=== PATIENT | male | born 1965 | race Caucasian/White ===

== ENCOUNTER 2019-01-19 00:15 | Emergency (ER) | payer BC, SELFPAY ==
[2019-01-19 00:16] VITALS: BP 180/117; PULSE 105; RESP 16; TEMP 36.8; O2SAT 98; BMI 29.4
--- NOTE | 2019-01-19 00:35 | HMH.EDGENADL ---
ED Disposition Clinical Impression: Otitis media Qualifiers: Otitis media type: serous Chronicity: acute Laterality: left Recurrence: non-recurrent Qualified Code(s): H65.02 - Acute serous otitis media, left ear Disposition: Home, Self-Care Condition on Discharge: Good Instructions: DI for Ear Pain-Adult Additional Instructions: use meds and call pcp in am Prescriptions: predniSONE [Prednisone 20mg Tab] 20 mg PO BID #10 tab Referrals: James Gaytan [Primary Care Provider] - - Critical Care Critical Care Time: No Attestation: On 01/19/19, the high probability of a clinically significant, sudden or life threatening deterioration of the following system(s) required my full and direct attention, intervention and personal management. The time I documented below is in addition to time spent performing reported procedures but includes the following listed in this critical care notation. Medical Decision Making - Medical Records Medical records reviewed: Yes: I reviewed the patient's medical records. - Sea Inquiry Pt receiving controlled substance: No Vital Signs: 01/19/19 00:16 Temperature 98.3 F Temperature Source Oral Pulse Rate [Right Brachial] 105 H Respiratory Rate 16 Blood Pressure [Right Arm] 180/117 H Blood Pressure Mean [Right Arm] 138 Blood Pressure Position [Right Arm] Sitting 02 Sat by Pulse Oximetry 98 Oxygen Delivery Method Room Air - Lab Data Lab results reviewed: Yes: I reviewed the patient's lab results. General Adult HPI - General Chief complaint: PAIN Stated complaint: Right earache Time Seen by Provider: 01/19/19 00:35 Mode of Arrival: Ambulatory Source of Information: Patient, Spouse, Medical Record Limitations: No Limitations Description of Symptoms (Recalled from ER Triage Doc. by RN): Pt c/o right ear pain. Advises he was seen on at [facility] and treated for sinus infection. - History of Present Illness HPI narrative: pt with rt ear pain which started today with no rash or trauma and no drainage - he was seen at [facility] and placed on abx - amox for sinus- Onset (ago): day(s) Severity: moderate Associated symptoms: denies other symptoms Treatments prior to arrival: none - Related Data Home Medications Medication Instructions Recorded Confirmed apixaban 2.5 mg tablet PO #180 tab 01/17/19 01/17/19 fenofibrate 160 mg tablet PO #90 tab 01/17/19 01/17/19 lisinopril 20 PO #90 tab 01/17/19 01/17/19 mg-hydrochlorothiazide 12.5 mg tablet omeprazole 40 mg capsule,delayed 40 mg PO DAILY 01/17/19 01/17/19 release Previous Rx's Medication Instructions Recorded amoxicillin 500 mg capsule 500 mg PO Q12H 10 Days #20 cap 01/17/19 predniSONE [Prednisone 20mg 20 mg PO BID #10 tab 01/19/19 Tab] Allergies Allergy/AdvReac Type Severity Reaction Status Date / Time amoxicillin [From Augmentin] Allergy Mild Verified 01/19/19 00:25 clavulanic acid Allergy Mild Verified 01/19/19 00:25 [From Augmentin] [facility] History - Hepatitis A Screen Drug use history?: No High risk sexual behaviors?: No History of sexually transmitted infection?: No Currently employed?: No Childcare worker?: No Do you have indoor plumbing?: Yes Do you have electricity?: Yes Attestation statement:: This patient has been screened for Hepatitis A risk factors. I have reviewed the patient's past medical history: Yes Medical History: Reports:: Deep Vein Thrombosis, Gastroesophageal Reflux Disease(GERD), Hyperlipidemia, Hypertension, Lung Disease Denies:: Diabetes Mellitus Type 1, Diabetes Mellitus Type 2, Internal Pacemaker, Seizures Other Medical History: Reports: Other Comment: 2 DVTS Laterality Cases: Other Surgeries: No: Pacemaker Comment: SURGERY ON LEG TO REMOVER CYST - Social History Smoking Status: Never smoker Alcohol Intake: never Substance Use Type: denies use Occupational Status: employed Housing: house Household Members: [facility]
--- NOTE | 2019-01-19 00:38 | ED_ITS ---
ED Disposition Clinical Impression: Otitis media Qualifiers: Otitis media type: serous Chronicity: acute Laterality: left Recurrence: non- recurrent Qualified Code(s): H65.02 - Acute serous otitis media, left ear Disposition: Home, Self-Care Condition on Discharge: Good Instructions: DI for Ear Pain-Adult Additional Instructions: use meds and call pcp in am Prescriptions: predniSONE [Prednisone 20mg Tab] 20 mg PO BID #10 tab Referrals: James Gaytan [Primary Care Provider] - - Critical Care Critical Care Time: No Attestation: On 01/19/19, the high probability of a clinically significant, sudden or life threatening deterioration of the following system(s) required my full and direct attention, intervention and personal management. The time I documented below is in addition to time spent performing reported procedures but includes the following listed in this critical care notation. Medical Decision Making - Medical Records Medical records reviewed: Yes: I reviewed the patient's medical records. - Sea Inquiry Pt receiving controlled substance: No Vital Signs: 01/19/19 00:16 Temperature 98.3 F Temperature Source Oral Pulse Rate [Right Brachial] 105 H Respiratory Rate 16 Blood Pressure [Right Arm] 180/117 H Blood Pressure Mean [Right Arm] 138 Blood Pressure Position [Right Arm] Sitting 02 Sat by Pulse Oximetry 98 Oxygen Delivery Method Room Air - Lab Data Lab results reviewed: Yes: I reviewed the patient's lab results. General Adult HPI - General Chief complaint: PAIN Stated complaint: Right earache Time Seen by Provider: 01/19/19 00:35 Mode of Arrival: Ambulatory Source of Information: Patient, Spouse, Medical Record Limitations: No Limitations Description of Symptoms (Recalled from ER Triage Doc. by RN): Pt c/o right ear pain. Advises he was seen on at [facility] and treated for sinus infection. - History of Present Illness HPI narrative: pt with rt ear pain which started today with no rash or trauma and no drainage - he was seen at [facility] and placed on abx - amox for sinus- Onset (ago): day(s) Severity: moderate Associated symptoms: denies other symptoms Treatments prior to arrival: none - Related Data Home Medications Medication Instructions Recorded Confirmed apixaban 2.5 mg tablet PO #180 tab 01/17/19 01/17/19 fenofibrate 160 mg tablet PO #90 tab 01/17/19 01/17/19 lisinopril 20 PO #90 tab 01/17/19 01/17/19 mg-hydrochlorothiazide 12.5 mg tablet omeprazole 40 mg capsule,delayed 40 mg PO DAILY 01/17/19 01/17/19 release Previous Rx's Medication Instructions Recorded amoxicillin 500 mg capsule 500 mg PO Q12H 10 Days #20 cap 01/17/19 predniSONE [Prednisone 20mg 20 mg PO BID #10 tab 01/19/19 Tab] Allergies Allergy/AdvReac Type Severity Reaction Status Date / Time amoxicillin [From Augmentin] Allergy Mild Verified 01/19/19 00:25 clavulanic acid Allergy Mild Verified 01/19/19 00:25 [From Augmentin] [place] History - Hepatitis A Screen Drug use history?: No High risk sexual behaviors?: No History of sexually transmitted inf
[2019-01-19 01:20] VITALS: BP 140/86; PULSE 98; RESP 17; TEMP 36.8; O2SAT 98
== END 2019-01-19 01:20 | disposition home or self-care (01) ==
PROVIDERS: Emergency Provider Emergency Medicine; PCP Internal Medicine
DX: H65.02 Acute serous otitis media, left ear (principal); K21.9 Gastro-esophageal reflux disease without esophagitis; E78.5 Hyperlipidemia, unspecified; I10 Essential (primary) hypertension
CPT/HCPCS: 96375; 99281; J0595

== ENCOUNTER → 2020-06-11 16:03 | Outpatient (CLI) | payer BC, SELFPAY ==
--- NOTE | 2020-06-11 16:10 | XR_ITS ---
PROCEDURE: XR FOOT RT MIN 3V CLINICAL INDICATION: R FOOT PAIN COMPARISON: No exams were available for comparison FINDINGS: No fracture or dislocation. No lytic or blastic change. There is normal mineralization. The joint spaces are well-preserved. No significant degenerative/arthritic changes. No erosive changes evident. Other findings:None. IMPRESSION: No acute findings. Dictated by: Andreas Roca MD 06/11/2020 16:32 Andreas Roca MD in [place] 06/11/2020 16:32
== END ==
PROVIDERS: PCP Internal Medicine; Visit Provider Internal Medicine
DX: M79.671 Pain in right foot (principal)
CPT/HCPCS: 73630

== ENCOUNTER → 2020-06-18 15:53 | Outpatient (CLI) | payer BC, SELFPAY ==
--- NOTE | 2020-06-18 16:01 | XR_ITS ---
PROCEDURE: XR FOREARM RT 2V CLINICAL INDICATION: INJURY Rheumatic pain COMPARISON: No exams were available for comparison FINDINGS: No fracture or dislocation. No lytic or blastic change. There is normal mineralization. The joint spaces are well-preserved. No significant degenerative/arthritic changes. No erosive changes evident. Other findings:None. IMPRESSION: No acute findings. Dictated by: Andreas Roca MD 06/18/2020 16:20 Andreas Roca MD in [place] 06/18/2020 16:20
--- NOTE | 2020-06-18 16:01 | XR_ITS ---
PROCEDURE: XR WRIST RT MIN 3V CLINICAL INDICATION: INJURY Posttraumatic pain COMPARISON: No exams were available for comparison FINDINGS: No fracture or dislocation. No lytic or blastic change. There is normal mineralization. The joint spaces are well-preserved. No significant degenerative/arthritic changes. No erosive changes evident. Other findings:None. IMPRESSION: No acute findings. Dictated by: Andreas Roca MD 06/18/2020 16:20 Andreas Roca MD in [place] 06/18/2020 16:20
== END ==
PROVIDERS: PCP Internal Medicine; Visit Provider Internal Medicine
DX: M79.631 Pain in right forearm (principal); M25.531 Pain in right wrist
CPT/HCPCS: 73090; 73110

== ENCOUNTER → 2021-08-28 18:07 | Outpatient (CLI) | payer BC, SELFPAY ==
[2021-08-28 18:18] LABS: Basophils % 0.5 % (0.1-2.0); Eosinophils # 0.2 K/mm3 (0.0-0.4); Eosinophils % 3.5 % (0.1-12.0); Hematocrit 41.4 % (42.0-52.0); Hemoglobin 14.7 g/dL (14.1-18.0); Lymphocytes # 1.8 K/mm3 (0.7-4.5); Lymphocytes % 33.7 % (10-50); Mean Corpuscular HGB Conc 35.6 g/dL (31.8-35.4); Mean Corpuscular Hemoglobin 29.7 pg (27.0-31.2); Mean Corpuscular Volume 83.5 fl (80-94); Mean Platelet Volume 8.6 fl (7.4-10.4); Monocytes # 0.4 K/mm3 (0.1-1.0); Monocytes % 6.9 % (1.7-9.3); Neutrophils % 55.3 % (37.0-80.0); Platelet Count 230 K/mm3 (142-424); Red Blood Count 4.95 M/mm3 (4.60-6.20); Red Cell Distribution Width 12.9 % (11.5-17.5); White Blood Count 5.3 K/mm3 (4.8-10.8)
[2021-08-28 20:40] LABS: Alanine Aminotransferase 27 U/L (12-78); Albumin Level 4.5 g/dl (3.5-5.0); Alkaline Phosphatase 49 U/L (38-126); Aspartate Amino Transferase 34 U/L (17-59); Bilirubin,Total 0.3 mg/dl (0.2-1.3); Blood Urea Nitrogen 14 mg/dl (9-20); Calcium 9.3 mg/dl (8.4-10.2); Carbon Dioxide 29 mmol/L (22.0-30.0); Chloride 104 mmol/L (98-107); Chol/HDL Ratio 3.6 (1-3.5); Cholesterol 191 mg/dl (140-200); Estimated Glomerular Filt Rate 100 ml/min (>60); GFR (African American) 121 ML/MIN (>60); Globulin 2.2 g/dL (1.3-3.2); Glucose 70 mg/dl (74-100); HDL Cholesterol 53 mg/dl (40-60); Sodium 139 mmol/L (136-145); Total Protein,Serum 6.7 g/dl (6.3-8.2); Triglycerides 137 mg/dl (30-150); VLDL Cholesterol 27 mg/dL (0-40)
[2021-08-28 20:51] LABS: Direct LDL Cholesterol 110.27 mg/dL (100-129)
== END ==
PROVIDERS: Visit Provider Internal Medicine
DX: I10 Essential (primary) hypertension (principal); I82.401 Acute embolism and thrombosis of unspecified deep veins of right lower extremity; I87.2 Venous insufficiency (chronic) (peripheral); E78.5 Hyperlipidemia, unspecified; N40.1 Benign prostatic hyperplasia with lower urinary tract symptoms
CPT/HCPCS: 80053; 80061; 85025

== ENCOUNTER → 2021-10-05 09:32 | Outpatient (CLI) | payer BC, SELFPAY | PROVIDERS: PCP Internal Medicine; Visit Provider Nurse Practitioner | DX: U07.1 COVID-19 (principal) | CPT/HCPCS: C9803; U0003; U0005 ==

== ENCOUNTER → 2022-06-14 14:03 | Outpatient (CLI) | payer BC, SELFPAY | PROVIDERS: PCP Internal Medicine; Visit Provider Urology | DX: R97.20 Elevated prostate specific antigen [PSA] (principal) | CPT/HCPCS: 36415; G0103 ==

== ENCOUNTER → 2022-11-23 09:33 | Outpatient (CLI) | payer BC, SELFPAY ==
--- NOTE | 2022-11-23 09:49 | XR_ITS ---
FINAL REPORT TECHNIQUE: Chest PA & Lateral CLINICAL HISTORY: PERSISTING COUGH,CONGESTION,SOA FINDINGS: 2 views of the chest were performed. The heart size is normal. The mediastinum is within normal limits. There is no acute cardiopulmonary process. There are no pleural effusions. There is no pneumothorax. The bony thorax appears intact. IMPRESSION: No acute cardiopulmonary process. Reviewed, Interpreted and Dictated by Harjit Escobar III, MD Transcribed by Soren Caballero Authenticated and [facility]
== END ==
PROVIDERS: PCP Internal Medicine; Visit Provider Internal Medicine
DX: R06.02 Shortness of breath (principal); R05.3 Chronic cough; R09.89 Other specified symptoms and signs involving the circulatory and respiratory systems
CPT/HCPCS: 71046

== ENCOUNTER → 2022-12-13 16:49 | Outpatient (CLI) | payer BC, SELFPAY ==
[2022-12-13 19:21] LABS: Prostate Specific Ag Screen 1.4 ng/ml (0.0-4.0)
== END ==
PROVIDERS: PCP Internal Medicine; Visit Provider Internal Medicine
DX: R97.20 Elevated prostate specific antigen [PSA] (principal); Z12.5 Encounter for screening for malignant neoplasm of prostate
CPT/HCPCS: G0103

== ENCOUNTER → 2023-08-08 13:36 | Outpatient (CLI) | payer BC, SELFPAY ==
[2023-08-08 16:08] LABS: Basophils % 0.5 % (0.1-2.0); Eosinophils # 0.2 K/mm3 (0.0-0.4); Eosinophils % 3.9 % (0.1-12.0); Hematocrit 43.9 % (42.0-52.0); Hemoglobin 15.8 g/dL (14.1-18.0); Lymphocytes # 1.5 K/mm3 (0.7-4.5); Lymphocytes % 29.2 % (10-50); Mean Corpuscular HGB Conc 35.9 g/dL (31.8-35.4); Mean Corpuscular Hemoglobin 29.7 pg (27.0-31.2); Mean Corpuscular Volume 82.6 fl (80-94); Mean Platelet Volume 9.9 fl (7.4-10.4); Monocytes # 0.4 K/mm3 (0.1-1.0); Monocytes % 8.1 % (1.7-9.3); Neutrophils % 58.3 % (37.0-80.0); Platelet Count 197 K/mm3 (142-424); Red Blood Count 5.31 M/mm3 (4.60-6.20); Red Cell Distribution Width 13.5 % (11.5-17.5); White Blood Count 5.2 K/mm3 (4.8-10.8)
[2023-08-08 16:48] LABS: Alanine Aminotransferase 40 U/L (12-78); Albumin Level 4.6 g/dl (3.5-5.0); Albumin/Globulin Ratio 1.9 (1.1-1.8); Alkaline Phosphatase 47 U/L (38-126); Anion Gap 12.8 mEq/L (5-15); Aspartate Amino Transferase 34 U/L (17-59); Bilirubin,Total 0.5 mg/dl (0.2-1.3); Blood Urea Nitrogen 17 mg/dl (9-20); Calcium 9.4 mg/dl (8.4-10.2); Carbon Dioxide 30 mmol/L (22.0-30.0); Chloride 100 mmol/L (98-107); Chol/HDL Ratio 5.1 (1-3.5); Cholesterol 213 mg/dl (140-200); Estimated Glomerular Filt Rate 86 ml/min (>60); GFR (African American) 105 ML/MIN (>60); Globulin 2.4 g/dL (1.3-3.2); Glucose 95 mg/dl (74-100); HDL Cholesterol 42 mg/dl (40-60); Potassium 3.8 mmoL/L (3.5-5.1); Sodium 139 mmol/L (136-145); Triglycerides 186 mg/dl (30-150); VLDL Cholesterol 37 mg/dL (0-40)
[2023-08-08 17:12] LABS: Direct LDL Cholesterol 127.33 mg/dL (100-129)
== END ==
PROVIDERS: PCP Internal Medicine; Visit Provider Internal Medicine
DX: R60.9 Edema, unspecified (principal); I10 Essential (primary) hypertension; E78.5 Hyperlipidemia, unspecified; I87.2 Venous insufficiency (chronic) (peripheral); G47.33 Obstructive sleep apnea (adult) (pediatric); M17.0 Bilateral primary osteoarthritis of knee
CPT/HCPCS: 80053; 80061; 85025

== ENCOUNTER 2024-06-18 16:53 | Outpatient (CLI) | payer BC, SELFPAY ==
--- NOTE | 2024-06-18 16:53 | MR_ITS ---
FINAL REPORT CLINICAL HISTORY: Lumbago with left sciatica. TINGLING AND PAIN IN LEFT LEG FINDINGS: Multiplanar MR imaging of the lumbar spine was performed without contrast. On the sagittal T2-weighted images, abnormal decreased signal is seen at L2-3, L3-4, and L5-S1 with mild loss of height at these levels. The vertebrae are of normal height. The vertebral alignment is normal. T12-L1: There is no significant canal stenosis or neural foraminal narrowing. L1-2: There is no significant canal stenosis or neural foraminal narrowing. L2-3: There is no significant canal stenosis or neural foraminal narrowing. L3-4: There is no significant canal stenosis or neural foraminal narrowing. L4-5: Mild diffuse disc bulge is present with mild bilateral neural foraminal narrowing. L5-S1: Mild diffuse disc bulge is present with endplate hypertrophy. There is moderate bilateral neural foraminal narrowing. IMPRESSION: Diffuse disc bulges with neural foraminal compromise at L4-5 and L5-S1. Reviewed, Interpreted and Dictated by Ignacio Felipe MD Transcribed by Tatiana Johnson Authenticated and [facility]
== END 2024-06-18 23:59 | disposition home or self-care (01) ==
LOC: RAD 16:53
PROVIDERS: PCP Internal Medicine; Visit Provider Internal Medicine
DX: M54.42 Lumbago with sciatica, left side (principal)
CPT/HCPCS: 72148

== ENCOUNTER 2024-06-25 14:00 | Outpatient (RCR) | payer BC, SELFPAY | END 2024-06-25 14:05 | disposition home or self-care (01) | LOC: PT 14:00 | PROVIDERS: Visit Provider Orthopaedic Surgery | DX: M17.12 Unilateral primary osteoarthritis, left knee (principal); Z98.890 Other specified postprocedural states | CPT/HCPCS: 97010; 97014; 97016; 97110; 97140; 97163; 97164; 97530; G0283 ==

== ENCOUNTER 2024-07-23 08:58 | Outpatient (POV) | payer BC, SELFPAY ==
[2024-07-23 09:03] VITALS: BP 159/84; PULSE 79; RESP 18; O2SAT 99; BMI 34.4
--- NOTE | 2024-07-23 10:17 | EXP.PAIN.OV ---
HPI Data of Consult Patient: new to practice Consult date: 07/23/24 Requesting Physician: Hannah Martinez APRN Primary Care Provider: James Gaytan MD Consult Narrative Reason for consult: Left-sided low back pain, left hip pain, left thigh pain History of present illness: Mr. Brown is a 59 year old male who presents today as a new patient. He is a referral from Dr. colnuga's office. Today he rates his pain a 5 out of 10. Patient states he has pain throughout his low back along the left side going into his left hip and does come down into his upper thigh. He states this been going on since around March when he ended up having left knee replacement. Patient states he feels like he may have overcompensated causing issues elsewhere. Patient does state that he has a longstanding history of back pain that he is typically seen a chiropractor for years for and got improvement. He does state that this pain is a strong achy sensation with some numbness. He states that certain activities like prolonged sitting seem to aggravate the symptoms. He does state the pain is interfering with his ability perform activities of daily living such as cooking and cleaning. Patient does state that Dr. Colunga did mention about possible lumbar fusion and he is trying to avoid this. Patient has tried oral medication, heat and ice and topicals with minimal relief as well as recent physical therapy and longstanding chiropractor therapy with minimal improvement. Patient is currently managed with gabapentin, meloxicam and oxycodone from outside providers. His Sea has been reviewed and is appropriate. CC: Hannah Martinez APRN [facility] Disclaimer: The information contained in this section may have been updated after the patient was seen, as this information can be updated by other users. Medical History (Updated 07/23/24 @ 10:20 by Hannah Martinez APRN) Insomnia Lung disease HTN (hypertension) HLD (hyperlipidemia) GERD (gastroesophageal reflux disease) DVT (deep venous thrombosis) Family History (Updated 07/23/24 @ 09:13 by Ruma Romano RN) Other Cancer Diabetes Heart attack Hypertension Social History (Updated 07/23/24 @ 09:48 by Ruma Romano RN) Smoking Status: Never smoker alcohol intake: never substance use type: denies use current occupational status: employed Travel in the last 8 weeks: None household members: family housing: house Review of Systems Review of Systems Review of systems:: pertinent systems reviewed and negative unless documented below Review of systems (narrative): Review of Systems: General: No recent weight changes, no fever, no sleep disturbances Respiratory: No cough, no shortness of air, no recurring pulmonary infections Cardiovascular/peripheral vascular: No chest pain, no palpitations, no edema, no shortness of breath Gastrointestinal: No new onset incontinence, normal bowel movements reported Genitourinary: No new onset incontinence Musculoskeletal: Left-sided low back pain, left hip pain Psychiatric: [Normal mood/affect] Neurological: [Denies weakness in extremities], [denies balance issues] Meds Home Medications and Allergies Home Medications ?Medication ?Instructions ?Recorded ?Confirmed ?Type levocetirizine 5 mg tablet 5 mg PO DAILY #90 tabs 03/14/24 07/23/24 Rx apixaban 2.5 mg tablet (Eliquis) See Rx Instructions .Route 03/30/24 07/23/24 Rx .COMPLEX #180 tabs montelukast 10 mg tablet See Rx Instructions .Route 04/25/24 07/23/24 Rx .COMPLEX #90 tabs fenofibrate 160 mg tablet See Rx Instructions .Route 05/11/24 07/23/24 Rx .COMPLEX #90 tabs gabapentin 300 mg capsule 600 mg (2 x 300 mg) PO HS #60 caps 05/31/24 07/23/24 Rx hydrochlorothiazide 12.5 mg tablet 12.5 mg PO DIRECTED Fluid 06/06/24 07/23/24 History losartan 100 mg tablet 100 mg PO DAILY 06/06/24 07/23/24 History meloxicam 15 mg tablet 15 mg PO DAILY 06/06/24 07/23/24 History omeprazole 40 mg capsule,delayed See Rx Instructions .Route 06/19/24 07/23/24 Rx release .COMPLEX #90 caps oxycodone 5 mg tablet See Rx Instructions PO HS PRN pain 07/09/24 07/23/24 Rx #30 tabs zolpidem 5 mg tablet 5 mg PO HS PRN insomnia #30 tabs 07/20/24 07/23/24 Rx New Prescriptions to Start Prescriptions: Allergies Allergy/AdvReac Type Severity Reaction Status Date / Time amoxicillin [From Augmentin] Allergy Mild Verified 06/06/24 09:56 clavulanic acid Allergy Mild Verified 06/06/24 09:56 [From Augmentin] Objective Vital signs: Pulse Resp BP Pulse Ox O2 Del Method 79 18 159/84 H 99 Room Air 07/23/24 09:03 07/23/24 09:03 07/23/24 09:03 07/23/24 09:03 07/23/24 09:03 Narrative: Physical Exam: General: Alert and oriented x3, no acute distress, pleasant and cooperative Lungs: Respirations even and unlabored, symmetrical chest expansion Eyes: PERRL Musculoskeletal: Flexion and extension of lumbar [spine] somewhat guarded secondary to pain, [antalgic gait noted] point tenderness along left SI with positive left Ojesph's, Ben's, Gaenslen's, compression and distraction exam Neurological: Speech clear, no gross sensory deficit Assessment and Plan *Assessment and plan (1) Sacroiliitis: Status: Acute Category: Medical Code(s): M46.1 - Sacroiliitis, not elsewhere classified (2) Degenerative disc disease, lumbar: Status: Acute Category: Medical Code(s): M51.369 - Other intervertebral disc degeneration, lumbar region without mention of lumbar back pain or lower extremity pain Plan Patient is experiencing worsening pain in and around his low back and left hip with limited range of motion. Patient did have point tenderness along his left SI and a positive left Joesph's, Ben's, Gaenslen's, compression and distraction exam. I did discuss with the patient due to his symptoms that I do believe he would benefit from a left SI injection. Risk and benefits were discussed with the patient and he would like to proceed forward with this plan of care. Patient has tried and failed conservative therapy including continued at home stretching exercise for longer than 12 weeks. Patient will be scheduled for left SI injection under fluoroscopy. Patient has been instructed to contact the clinic with any concerns before the next appointment. Dr. Lozada has reviewed this note and agrees with this plan of care. This note was dictated using voice recognition software and make contain errors or omissions. All injections are used with Lidocaine or Bupivacaine and Depo Medrol.
== END 2024-07-23 23:59 | disposition home or self-care (01) ==
LOC: SC.PAIN 08:59
PROVIDERS: PCP Internal Medicine; Visit Provider Nurse Practitioner Family
DX: M51.369 Other intervertebral disc degeneration, lumbar region without mention of lumbar back pain or lower extremity pain (principal); M46.1 Sacroiliitis, not elsewhere classified; Z73.89 Other problems related to life management difficulty; Z79.01 Long term (current) use of anticoagulants
CPT/HCPCS: 99202; G0463

== ENCOUNTER 2024-08-23 12:27 | Outpatient (POV) | payer BC, SELFPAY ==
[2024-08-23 12:38] VITALS: BP 174/76; PULSE 68; RESP 16; O2SAT 98; BMI 33.9
--- NOTE | 2024-08-23 12:38 | EXP.PAIN.SOA ---
[facility] Disclaimer: The information contained in this section may have been updated after the patient was seen, as this information can be updated by other users. Medical History (Updated 07/23/24 @ 10:20 by Hannah Martinez APRN) Insomnia Lung disease HTN (hypertension) HLD (hyperlipidemia) GERD (gastroesophageal reflux disease) DVT (deep venous thrombosis) Family History (Updated 07/23/24 @ 09:13 by Ruma Romano RN) Other Cancer Diabetes Heart attack Hypertension Social History (Updated 07/23/24 @ 09:48 by Ruma Romano RN) Smoking Status: Never smoker alcohol intake: never substance use type: denies use current occupational status: employed Travel in the last 8 weeks: None household members: family housing: house PM Subjective & Objective Subjective Subjective:: Patient is a pleasant 59-year-old male who presents today for insurance denial of a left SI injection. Today he rates his pain a 0 out of 10. Patient denies any new trauma or injury. He states that he has still been having physical therapy for his right knee and that they did also give him a couple of exercises for his SI pain and it did seem to help his other pain. He states that he still has the same sensations with certain movements such as laying on his left side or when he is doing the bicycle to help with motion. He feels like he still has a lot of tightness and drawing up sensation in and around his low back on the left side and left hip. Patient states that this is a achy sensation with some numbness and does interfere with his ability to perform activities of daily living such as cooking and cleaning. Patient has been experiencing this issue since March. Patient does have a longstanding history of prior back issues and did have a fusion in the past. Patient has tried and failed oral medication, heat and ice and topicals along with physical therapy and chiropractor therapy. Patient is currently managed with gabapentin, meloxicam and oxycodone from outside providers. His Sea has been reviewed and is appropriate. Review of Systems: General: No recent weight changes, no fever, no sleep disturbances Respiratory: No cough, no shortness of air, no recurring pulmonary infections Cardiovascular/peripheral vascular: No chest pain, no palpitations, no edema, no shortness of breath Gastrointestinal: No new onset incontinence, normal bowel movements reported Genitourinary: No new onset incontinence Musculoskeletal: Low back pain Psychiatric: [Normal mood/affect] Neurological: [Denies weakness in extremities], [denies balance issues] Pain at rest (0-10 scale): 0 Objective Objective:: Physical Exam: General: Alert and oriented x3, no acute distress, pleasant and cooperative Lungs: Respirations even and unlabored, symmetrical chest expansion Eyes: PERRL Musculoskeletal: Flexion and extension of lumbar [spine] somewhat guarded secondary to pain, [antalgic gait noted] Neurological: Speech clear, no gross sensory deficit Has patient had previous pain injection?: No Conservative treatment options previously tried: Home exercise plan Length of treatment: Longer than 12 weeks Meds Home Medications and Allergies Home Medications ?Medication ?Instructions ?Recorded ?Confirmed ?Type levocetirizine 5 mg tablet 5 mg PO DAILY #90 tabs 03/14/24 07/23/24 Rx apixaban 2.5 mg tablet (Eliquis) See Rx Instructions .Route 03/30/24 07/23/24 Rx .COMPLEX #180 tabs montelukast 10 mg tablet See Rx Instructions .Route 04/25/24 07/23/24 Rx .COMPLEX #90 tabs fenofibrate 160 mg tablet See Rx Instructions .Route 05/11/24 07/23/24 Rx .COMPLEX #90 tabs gabapentin 300 mg capsule 600 mg (2 x 300 mg) PO HS #60 caps 05/31/24 07/23/24 Rx meloxicam 15 mg tablet 15 mg PO DAILY 06/06/24 07/23/24 History omeprazole 40 mg capsule,delayed See Rx Instructions .Route 06/19/24 07/23/24 Rx release .COMPLEX #90 caps oxycodone 5 mg tablet See Rx Instructions PO HS PRN pain 07/09/24 07/23/24 Rx #30 tabs hydrochlorothiazide 12.5 mg tablet See Rx Instructions .Route 07/27/24 Rx .COMPLEX #90 tabs losartan 100 mg tablet See Rx Instructions .Route 07/27/24 Rx .COMPLEX #90 tabs zolpidem 5 mg tablet 5 mg PO HS PRN insomnia #30 tabs 08/22/24 Rx New Prescriptions to Start Prescriptions: Allergies Allergy/AdvReac Type Severity Reaction Status Date / Time amoxicillin (From Augmentin) Allergy Mild Verified 06/06/24 09:56 clavulanic acid (From Allergy Mild Verified 06/06/24 09:56 Augmentin) Assessment and Plan *Assessment and plan (1) Degenerative disc disease, lumbar: Status: Acute Category: Medical Code(s): M51.369 - Other intervertebral disc degeneration, lumbar region without mention of lumbar back pain or lower extremity pain (2) Sacroiliitis: Status: Acute Category: Medical Code(s): M46.1 - Sacroiliitis, not elsewhere classified Plan I did review over with the patient regarding the denial and that the reason was the provider who reviewed the chart felt like his symptoms were more radicular in nature. I did discuss with patient since he is having a better day today that if he would like to wait we can follow-up in future for possible additional injections. I will order the patient a compounded cream. Patient will return to clinic in 1 month for reevaluation of symptoms and plan of care. Patient has been instructed to contact the clinic with any concerns before the next appointment. Dr. Lozada has reviewed this note and agrees with this plan of care. This note was dictated using voice recognition software and make contain errors or omissions. All injections are used with Lidocaine or Bupivacaine and Depo Medrol.
== END 2024-08-23 23:59 | disposition home or self-care (01) ==
LOC: SC.PAIN 12:28
PROVIDERS: PCP Internal Medicine; Visit Provider Nurse Practitioner Family
DX: M51.369 Other intervertebral disc degeneration, lumbar region without mention of lumbar back pain or lower extremity pain (principal); M46.1 Sacroiliitis, not elsewhere classified; Z73.89 Other problems related to life management difficulty; Z79.01 Long term (current) use of anticoagulants
CPT/HCPCS: 99212; G0463

== ENCOUNTER 2024-09-21 14:44 | Outpatient (POV) | payer BC, SELFPAY ==
[2024-09-21 15:16] VITALS: BP 163/91; PULSE 84; RESP 16; TEMP 36.4; O2SAT 98; BMI 35.6
--- NOTE | 2024-09-21 15:57 | EXP.PAIN.SOA ---
[facility] Disclaimer: The information contained in this section may have been updated after the patient was seen, as this information can be updated by other users. Medical History Insomnia Lung disease HTN (hypertension) HLD (hyperlipidemia) GERD (gastroesophageal reflux disease) DVT (deep venous thrombosis) Family History Other Cancer Diabetes Heart attack Hypertension Social History Smoking Status: Never smoker alcohol intake: never substance use type: denies use current occupational status: other Travel in the last 8 weeks: None household members: family housing: house PM Subjective & Objective Subjective Subjective:: Patient is a pleasant 59-year-old male who presents today for follow-up and worsening pain. Today he denies state that he is pain has still been severe at times. He states it was just the other day it was an 8 out of 10. He denies any new trauma or injury. Patient does state that the pain is all in his low back around the left side of his buttocks and does go down into his hip area but denies any radiating symptoms into his leg. Patient states that it is constant when he is sitting for prolonged periods. He states he cannot stay in a seated position for longer than 45 minutes due to the severe pain. He is constantly having to change positions and is continued his conservative treatment of oral medication, heat and ice, the compounded cream and continued physical therapy. Patient did have an adjustment this morning and states that all of it does seem to be making a difference however he still would like to see about having an injection to really improve the overall symptoms. His Sea has been reviewed and is appropriate. Review of Systems: General: No recent weight changes, no fever, no sleep disturbances Respiratory: No cough, no shortness of air, no recurring pulmonary infections Cardiovascular/peripheral vascular: No chest pain, no palpitations, no edema, no shortness of breath Gastrointestinal: No new onset incontinence, normal bowel movements reported Genitourinary: No new onset incontinence Musculoskeletal: Left hip/buttocks pain Psychiatric: [Normal mood/affect] Neurological: [Denies weakness in extremities], [denies balance issues] Pain at rest (0-10 scale): 8 Objective Objective:: Physical Exam: General: Alert and oriented x3, no acute distress, pleasant and cooperative Lungs: Respirations even and unlabored, symmetrical chest expansion Eyes: PERRL Musculoskeletal: Flexion and extension of lumbar [spine] somewhat guarded secondary to pain, [antalgic gait noted] point tenderness along left SI with positive left Joesph's, Ben's, Gaenslen's, compression and distraction exam Neurological: Speech clear, no gross sensory deficit Has patient had previous pain injection?: No Conservative treatment options previously tried: Home exercise plan Length of treatment: Longer than 12 weeks and Physical Therapy Length of treatment: Ongoing Meds Home Medications and Allergies Home Medications ?Medication ?Instructions ?Recorded ?Confirmed ?Type montelukast 10 mg tablet See Rx Instructions .Route 04/25/24 09/21/24 Rx .COMPLEX #90 tabs fenofibrate 160 mg tablet See Rx Instructions .Route 05/11/24 09/21/24 Rx .COMPLEX #90 tabs meloxicam 15 mg tablet 15 mg PO DAILY 06/06/24 09/21/24 History omeprazole 40 mg capsule,delayed See Rx Instructions .Route 06/19/24 09/21/24 Rx release .COMPLEX #90 caps oxycodone 5 mg tablet See Rx Instructions PO HS PRN pain 07/09/24 09/21/24 Rx #30 tabs hydrochlorothiazide 12.5 mg tablet See Rx Instructions .Route 07/27/24 09/21/24 Rx .COMPLEX #90 tabs losartan 100 mg tablet See Rx Instructions .Route 07/27/24 09/21/24 Rx .COMPLEX #90 tabs zolpidem 5 mg tablet 5 mg PO HS PRN insomnia #30 tabs 08/22/24 09/21/24 Rx levocetirizine 5 mg tablet See Rx Instructions .Route 09/03/24 09/21/24 Rx .COMPLEX #90 tabs gabapentin 300 mg capsule See Rx Instructions .Route 09/06/24 09/21/24 Rx .COMPLEX #60 caps albuterol sulfate 90 mcg/actuation 1 inh inhalation Q6H PRN shortness 09/17/24 09/21/24 Rx aerosol inhaler of breath or wheezing #8.5 grams apixaban 2.5 mg tablet (Eliquis) See Rx Instructions .Route 01/02/25 01/03/25 Rx .COMPLEX #180 tabs cefdinir 300 mg capsule 300 mg PO BID #20 caps 09/20/24 09/21/24 Rx hydrocodone-homatropine 5 mg-1.5 1 tab PO TID PRN cough #30 tabs 09/20/24 09/21/24 Rx mg tablet prednisone 10 mg tablet 10 mg PO DIRECTED #32 tabs 09/20/24 09/21/24 Rx New Prescriptions to Start Prescriptions: Allergies Allergy/AdvReac Type Severity Reaction Status Date / Time amoxicillin (From Augmentin) Allergy Mild Verified 09/20/24 10:01 clavulanic acid (From Allergy Mild Verified 09/20/24 10:01 Augmentin) Assessment and Plan *Assessment and plan (1) Sacroiliitis: Status: Acute Category: Medical Code(s): M46.1 - Sacroiliitis, not elsewhere classified (2) Lumbago with sciatica, left side: Status: Acute Category: Medical Code(s): M54.42 - Lumbago with sciatica, left side Plan Patient is still experiencing significant pain in his low back along the left side with limited range of motion. Patient did have point tenderness on his left SI with a positive left Joesph's, Ben's, Gaenslen's, compression and distraction exam. I did discuss with the patient that I do still believe he would benefit from a left SI injection. Risk and benefits were discussed with the patient and he would like to proceed forward with this plan of care. Patient has tried multiple oral medication, heat and ice, topicals, at home stretching exercise that was physician guided and ongoing physical therapy and adjustments. Patient will be scheduled for a left SI injection under fluoroscopy. Patient does not have any radiating symptoms into his legs. Patient has been instructed to contact the clinic with any concerns before the next appointment. Dr. Lozada has reviewed this note and agrees with this plan of care. This note was dictated using voice recognition software and make contain errors or omissions. All injections are used with Lidocaine, Bupivacaine and Depo Medrol. Occasionally urine drug screen is needed to verify patient's compliance with our office pain contract. This is ordered based off specific treatments related to chronic pain with the potential to abuse certain medications.
== END 2024-09-21 23:59 | disposition home or self-care (01) ==
LOC: SC.PAIN 14:45
PROVIDERS: PCP Internal Medicine; Visit Provider Nurse Practitioner Family
DX: M46.1 Sacroiliitis, not elsewhere classified (principal); M54.42 Lumbago with sciatica, left side; Z79.899 Other long term (current) drug therapy
CPT/HCPCS: 99212; G0463

== ENCOUNTER 2024-10-09 09:33 | Day surgery (SDC) | payer BC, SELFPAY ==
[2024-10-09 10:00] VITALS: BP 150/85; PULSE 73; RESP 18; O2SAT 96; BMI 33.9
--- NOTE | 2024-10-09 10:35 | EXP.PAIN.PRO ---
Procedure Date: 10/09/24 Time: 10:30 Anesthesiologist:: Armin Glez CRNA Complications:: None Pre-procedure Diagnosis:: Left sacroiliitis Post-procedure Diagnosis:: Same Indications for Procedure:: Patient is a pleasant 59-year-old male who comes our clinic today for a left sacroiliac joint injection of cortisone and local anesthetic. Patient describes left lumbar back pain. Left posterior hip pain. Difficulty transitioning from sitting to standing. Difficulty with ambulation. Procedure Details:: Procedure: Left sacroiliac injection under fluoroscopy Informed consent was obtained and the risk and benefits of the procedure were explained to the patient.~ The patient was taken to the procedure room and noninvasive monitors were placed including noninvasive blood pressure cuff and pulse oximeter.~ The patient was placed prone on the procedure table.~ The~ left hip was cleansed using Betadine as a cleansing solution.~ C-arm fluorosocpy was used to view the left SI joint.~ The skin and subcutaneous tissues were anesthetized using Lidocaine 1.5% and a 25-gauge needle.~ After this, a 22-gauge spinal needle was inserted under fluoroscopic guidance into the inferior aspect of the left SI joint.~ Omnipaque dye was injected and a good spread was seen throughout the joint.~ After this, approximately 5 mL of bupivacaine 0.25% and Depo-Medrol 40 mg was incrementally injected into the sacroiliac joint.~ The patient tolerated the procedure well with no complications.~ The patient was observed in the Pain Clinic for a period of 30-45 minutes, then discharged home neurologically intact.~ Plan and Disposition:: Patient was discharged without incident.
[2024-10-09 10:38] VITALS: BP 149/80; PULSE 69; RESP 18; O2SAT 98
[2024-10-09] MEDS: LIDOCAINE 1% 5ML PF VIAL 5 ML (10:47)
[2024-10-09] MEDS: BUPIVACAINE 0.25% 10ML INJ 25 MG IJ (10:47)
[2024-10-09] MEDS: methylPREDNISolone ACETATE 80MG/ML VIAL 80 MG (10:47)
[2024-10-09 10:48] VITALS: BP 169/95; PULSE 83; RESP 18; O2SAT 97
[2024-10-09 10:49] VITALS: BP 169/95; PULSE 83; RESP 18; O2SAT 97
== END 2024-10-09 10:38 | disposition home or self-care (01) ==
PROVIDERS: PCP Internal Medicine; Visit Provider Nurse Anesthetist, Certified Registered
DX: M46.1 Sacroiliitis, not elsewhere classified (principal)
CPT/HCPCS: 27096; G0260; J1010

== ENCOUNTER 2024-10-23 14:41 | Outpatient (POV) | payer BC, SELFPAY ==
[2024-10-23 15:20] VITALS: BP 162/82; PULSE 76; RESP 16; TEMP 37.1; O2SAT 99; BMI 34.5
--- NOTE | 2024-10-23 15:31 | A.OFFVIS_ITS ---
[facility] Disclaimer: The information contained in this section may have been updated after the patient was seen, as this information can be updated by other users. Medical History Insomnia Lung disease HTN (hypertension) HLD (hyperlipidemia) GERD (gastroesophageal reflux disease) DVT (deep venous thrombosis) Family History Other Cancer Diabetes Heart attack Hypertension Social History Smoking Status: Never smoker alcohol intake: never substance use type: denies use current occupational status: other Travel in the last 8 weeks: None household members: family housing: house PM Subjective & Objective Subjective Subjective:: Patient is a pleasant 59-year-old male who presents today for follow-up of left SI injection on 10/09/2024. Today he rates his pain a 0 out of 10. Patient does state the date of the procedure he had 80% improvement and that even now he feels like it is still working however does state that he would rate more about 50% currently. Patient states that he has been able to do more activity with overall decreased pain. He states that he was even able to sit for longer than 2 hours at a time without having the severe pain that he had been experiencing. He does state that he still has a little bit however it is much more manageable and he is being set up with physical therapy exercises from his insurance. He denies any other changes. His Sea has been reviewed and is appropriate. Review of Systems: General: No recent weight changes, no fever, no sleep disturbances Respiratory: No cough, no shortness of air, no recurring pulmonary infections Cardiovascular/peripheral vascular: No chest pain, no palpitations, no edema, no shortness of breath Gastrointestinal: No new onset incontinence, normal bowel movements reported Genitourinary: No new onset incontinence Musculoskeletal: Low back pain Psychiatric: [Normal mood/affect] Neurological: [Denies weakness in extremities], [denies balance issues] Pain at rest (0-10 scale): 0 Objective Objective:: Physical Exam: General: Alert and oriented x3, no acute distress, pleasant and cooperative Lungs: Respirations even and unlabored, symmetrical chest expansion Eyes: PERRL Musculoskeletal: Flexion and extension of lumbar [spine] within normal limit Neurological: Speech clear, no gross sensory deficit Has patient had previous pain injection?: Yes Percent improvement in pain since last injection: 80% Conservative treatment options previously tried: Home exercise plan Length of treatment: Longer than 12 weeks Meds Home Medications and Allergies Home Medications ?Medication ?Instructions ?Recorded ?Confirmed ?Type montelukast 10 mg tablet See Rx Instructions .Route 04/25/24 10/23/24 Rx .COMPLEX #90 tabs fenofibrate 160 mg tablet See Rx Instructions .Route 05/11/24 10/23/24 Rx .COMPLEX #90 tabs meloxicam 15 mg tablet 15 mg PO DAILY 06/06/24 10/23/24 History omeprazole 40 mg capsule,delayed See Rx Instructions .Route 06/19/24 10/23/24 Rx release .COMPLEX #90 caps oxycodone 5 mg tablet See Rx Instructions PO HS PRN pain 07/09/24 10/23/24 Rx #30 tabs hydrochlorothiazide 12.5 mg tablet See Rx Instructions .Route 07/27/24 10/23/24 Rx .COMPLEX #90 tabs losartan 100 mg tablet See Rx Instructions .Route 07/27/24 10/23/24 Rx .COMPLEX #90 tabs zolpidem 5 mg tablet 5 mg PO HS PRN insomnia #30 tabs 08/22/24 10/23/24 Rx levocetirizine 5 mg tablet See Rx Instructions .Route 09/03/24 10/23/24 Rx .COMPLEX #90 tabs gabapentin 300 mg capsule See Rx Instructions .Route 09/06/24 10/23/24 Rx .COMPLEX #60 caps albuterol sulfate 90 mcg/actuation 1 inh inhalation Q6H PRN shortness 09/17/24 10/23/24 Rx aerosol inhaler of breath or wheezing #8.5 grams apixaban 2.5 mg tablet (Eliquis) See Rx Instructions .Route 09/20/24 10/23/24 Rx .COMPLEX #180 tabs cefdinir 300 mg capsule 300 mg PO BID #20 caps 09/20/24 10/23/24 Rx hydrocodone-homatropine 5 mg-1.5 1 tab PO TID PRN cough #30 tabs 09/20/24 10/23/24 Rx mg tablet prednisone 10 mg tablet 10 mg PO DIRECTED #32 tabs 09/20/24 10/23/24 Rx New Prescriptions to Start Prescriptions: Allergies Allergy/AdvReac Type Severity Reaction Status Date / Time amoxicillin (From Augmentin) Allergy Mild Verified 09/20/24 10:01 clavulanic acid (From Allergy Mild Verified 09/20/24 10:01 Augmentin) Assessment and Plan *Assessment and plan (1) Sacroiliitis: Status: Acute Category: Medical Code(s): M46.1 - Sacroiliitis, not elsewhere classified Plan Patient has had significant improvement following his SI injection and does not require any additional injection therapy. Patient will return to clinic in 6 weeks for reevaluation of symptoms and plan of care. Patient has been instructed to contact the clinic with any concerns before the next appointment. Dr. Lozada has reviewed this note and agrees with this plan of care. This note was dictated using voice recognition software and make contain errors or omissions. All injections are used with Lidocaine, Bupivacaine and Depo Medrol. Occasionally urine drug screen is needed to verify patient's compliance with our office pain contract. This is ordered based off specific treatments related to chronic pain with the potential to abuse certain medications.
== END 2024-10-23 23:59 | disposition home or self-care (01) ==
LOC: SC.PAIN 14:41
PROVIDERS: PCP Internal Medicine; Visit Provider Nurse Practitioner Family
DX: M46.1 Sacroiliitis, not elsewhere classified (principal); Z79.01 Long term (current) use of anticoagulants
CPT/HCPCS: 99212; G0463

== ENCOUNTER 2024-12-19 10:28 | Outpatient (POV) | payer BC, SELFPAY ==
[2024-12-19 11:17] VITALS: BP 139/76; PULSE 69; RESP 14; O2SAT 96; BMI 34.5
--- NOTE | 2024-12-19 11:28 | A.OFFVIS_ITS ---
[facility] Disclaimer: The information contained in this section may have been updated after the patient was seen, as this information can be updated by other users. Medical History Insomnia Lung disease HTN (hypertension) HLD (hyperlipidemia) GERD (gastroesophageal reflux disease) DVT (deep venous thrombosis) Family History Other Cancer Diabetes Heart attack Hypertension Social History Smoking Status: Never smoker alcohol intake: never substance use type: denies use current occupational status: other Travel in the last 8 weeks: None household members: family housing: house PM Subjective & Objective Subjective Subjective:: Patient is a pleasant 59-year-old male who presents today for follow-up. Today he rates his pain a 2 out of 10. He denies any new trauma or injury. He does state that overall he is still doing well from his last left SI injection in Sep that did provide 80%. He does state that certain days are worse than others. He states he mowed yesterday and did not have any issues with this however later in certain positions where he was prolonged seated that he did have increased pain. He does state he is still seeing chiropractor therapy. His Sea has been reviewed and is appropriate. Review of Systems: General: No recent weight changes, no fever, no sleep disturbances Respiratory: No cough, no shortness of air, no recurring pulmonary infections Cardiovascular/peripheral vascular: No chest pain, no palpitations, no edema, n o shortness of breath Gastrointestinal: No new onset incontinence, normal bowel movements reported Genitourinary: No new onset incontinence Musculoskeletal: Low back pain Psychiatric: [Normal mood/affect] Neurological: [Denies weakness in extremities], [denies balance issues] Pain at rest (0-10 scale): 2 Objective Objective:: Physical Exam: General: Alert and oriented x3, no acute distress, pleasant and cooperative Lungs: Respirations even and unlabored, symmetrical chest expansion Eyes: PERRL Musculoskeletal: Flexion and extension of lumbar [spine] within normal limits Neurological: Speech clear, no gross sensory deficit Has patient had previous pain injection?: No Conservative treatment options previously tried: Home exercise plan Length of treatment: Longer than 12 weeks Meds Home Medications and Allergies Home Medications ?Medication ?Instructions ?Recorded ?Confirmed ?Type montelukast 10 mg tablet See Rx Instructions .Route 04/25/24 12/19/24 Rx .COMPLEX #90 tabs fenofibrate 160 mg tablet See Rx Instructions .Route 05/11/24 12/19/24 Rx .COMPLEX #90 tabs meloxicam 15 mg tablet 15 mg PO DAILY 06/06/24 12/19/24 History oxycodone 5 mg tablet See Rx Instructions PO HS PRN pain 07/09/24 12/19/24 Rx #30 tabs hydrochlorothiazide 12.5 mg tablet See Rx Instructions .Route 07/27/24 12/19/24 Rx .COMPLEX #90 tabs losartan 100 mg tablet See Rx Instructions .Route 07/27/24 12/19/24 Rx .COMPLEX #90 tabs zolpidem 5 mg tablet 5 mg PO HS PRN insomnia #30 tabs 08/22/24 12/19/24 Rx levocetirizine 5 mg tablet See Rx Instructions .Route 09/03/24 12/19/24 Rx .COMPLEX #90 tabs albuterol sulfate 90 mcg/actuation 1 inh inhalation Q6H PRN shortness 09/17/24 12/19/24 Rx aerosol inhaler of breath or wheezing #8.5 grams apixaban 2.5 mg tablet (Eliquis) See Rx Instructions .Route 09/20/24 12/19/24 Rx .COMPLEX #180 tabs cefdinir 300 mg capsule 300 mg PO BID #20 caps 09/20/24 12/19/24 Rx hydrocodone-homatropine 5 mg-1.5 1 tab PO TID PRN cough #30 tabs 09/20/24 12/19/24 Rx mg tablet prednisone 10 mg tablet 10 mg PO DIRECTED #32 tabs 09/20/24 12/19/24 Rx gabapentin 300 mg capsule See Rx Instructions .Route 11/07/24 12/19/24 Rx .COMPLEX #60 caps oseltamivir 75 mg capsule (Tamiflu) 75 mg PO DAILY 10 days #10 caps 12/03/24 12/19/24 Rx omeprazole 40 mg capsule,delayed See Rx Instructions .Route 12/12/24 12/19/24 Rx release .COMPLEX #90 caps prednisone 10 mg tablet 10 mg PO DIRECTED #32 tabs 12/12/24 12/19/24 Rx baclofen 5 mg tablet 5 mg PO TID #42 tabs 12/19/24 Rx New Prescriptions to Start Prescriptions: baclofen Hannah Martinez Allergies Allergy/AdvReac Type Severity Reaction Status Date / Time amoxicillin (From Augmentin) Allergy Mild Verified 12/12/24 16:08 clavulanic acid (From Allergy Mild Verified 12/12/24 16:08 Augmentin) Assessment and Plan *Assessment and plan (1) Sacroiliitis: Status: Acute Category: Medical Code(s): M46.1 - Sacroiliitis, not elsewhere classified Plan Patient is still having improvement following his left SI injection and does not require any additional injection therapy at this time. Patient does have certain days that are worse than others with increased pain. I did discuss with the patient that I will send in a low-dose muscle relaxer to be used as needed and see if this does help additionally in those times of worsening pain. Patient was counseled to call our office if this medicine does help and he would like additional refills. Patient will be sent in baclofen 5 mg 3 times daily as needed. Patient will return to clinic in 2 months for reevaluation of symptoms and plan of care. Patient has been instructed to contact the clinic with any concerns before the next appointment. Dr. Lozada has reviewed this note and agrees with this plan of care. This note was dictated using voice recognition software and make contain errors or omissions. All injections are used with Lidocaine, Bupivacaine and Depo Medrol. Occasionally urine drug screen is needed to verify patient's compliance with our office pain contract. This is ordered based off specific treatments related to chronic pain with the potential to abuse certain medications.
== END 2024-12-19 23:59 | disposition home or self-care (01) ==
PROVIDERS: PCP Internal Medicine; Visit Provider Nurse Practitioner Family
DX: M46.1 Sacroiliitis, not elsewhere classified (principal); Z79.01 Long term (current) use of anticoagulants
CPT/HCPCS: 99212; G0463

== ENCOUNTER 2025-02-18 09:19 | Outpatient (POV) | payer BC, SELFPAY ==
[2025-02-18 09:58] VITALS: BP 146/79; PULSE 68; RESP 16; O2SAT 100; BMI 33.9
--- NOTE | 2025-02-18 10:25 | A.OFFVIS_ITS ---
[facility] Disclaimer: The information contained in this section may have been updated after the patient was seen, as this information can be updated by other users. Medical History Insomnia Lung disease HTN (hypertension) HLD (hyperlipidemia) GERD (gastroesophageal reflux disease) DVT (deep venous thrombosis) Family History Other Cancer Diabetes Heart attack Hypertension Social History Smoking Status: Never smoker alcohol intake: never substance use type: denies use current occupational status: other Travel in the last 8 weeks?: None household members: family housing: house PM Subjective & Objective Subjective Subjective:: Patient is a pleasant 59-year-old male who presents today for 2-month follow-up. Today he rates his pain a 0 out of 10. He states overall he is still done well from the previous left SI injection back in September. He does state that he is also been tapering off his gabapentin with his primary care and felt like this also improved his pain overall. Patient is prescribed baclofen 5 mg 3 times a day from our office and states this does still help however he only does them as needed and does not need refills at this time. His Sea has been reviewed and is appropriate. Review of Systems: General: No recent weight changes, no fever, no sleep disturbances Respiratory: No cough, no shortness of air, no recurring pulmonary infections Cardiovascular/peripheral vascular: No chest pain, no palpitations, no edema, no shortness of breath Gastrointestinal: No new onset incontinence, normal bowel movements reported Genitourinary: No new onset incontinence Musculoskeletal: Low back pain Psychiatric: [Normal mood/affect] Neurological: [Denies weakness in extremities], [denies balance issues] Pain at rest (0-10 scale): 0 Objective Objective:: Physical Exam: General: Alert and oriented x3, no acute distress, pleasant and cooperative Lungs: Respirations even and unlabored, symmetrical chest expansion Eyes: PERRL Musculoskeletal: Flexion and extension of lumbar spine within normal limits Neurological: Speech clear, no gross sensory deficit Has patient had previous pain injection?: No Conservative treatment options previously tried: Home exercise plan Length of treatment: Longer than 12 weeks Meds Home Medications and Allergies Home Medications ?Medication ?Instructions ?Recorded ?Confirmed ?Type montelukast 10 mg tablet See Rx Instructions .Route 0 04/25/24 02/18/25 Rx .COMPLEX #90 tabs fenofibrate 160 mg tablet See Rx Instructions .Route 0 05/11/24 02/18/25 Rx .COMPLEX #90 tabs meloxicam 15 mg tablet 15 mg PO DAILY 06/06/2411/13 History oxycodone 5 mg tablet See Rx Instructions PO HS NH N pain 07/09/24 02/18/25 Rx #30 tabs zolpidem 5 mg tablet 5 mg PO HS PRN insomnia #30 tabs 08/22/24 02/18/25 Rx levocetirizine 5 mg tablet See Rx Instructions .Route 09/03/24 02/18/25 Rx .COMPLEX #90 tabs albuterol sulfate 90 mcg/actuation 1 inh inhalation Q6 H PRN shortness 09/17/24 02/18/25 Rx aerosol inhaler of breath or wheezing #8.5 g kendrick apixaban 2.5 mg tablet (Eliquis) See Rx Instructions . Route 09/20/24 02/18/25 Rx .COMPLEX #180 tabs cefdinir 300 mg capsule 300 mg PO BID #20 caps 09/2002/18/25 Rx hydrocodone-homatropine 5 mg-1.5 1 tab PO TID PRN coug h #30 tabs 09/20/24 02/18/25 Rx mg tablet prednisone 10 mg tablet 10 mg PO DIRECTED #32 tab s 09/20/24 02/18/25 Rx oseltamivir 75 mg capsule (Tamiflu) 75 mg PO DAILY 10 days #10 caps 12/03/24 02/18/25 Rx omeprazole 40 mg capsule,delayed See Rx Instructions . Route 12/12/24 02/18/25 Rx release .COMPLEX #90 caps prednisone 10 mg tablet 10 mg PO DIRECTED #32 tab s 12/12/24 02/18/25 Rx baclofen 5 mg tablet 5 mg PO TID #42 tabs 5 02/18/25 Rx gabapentin 300 mg capsule See Rx Instructions .Route 0 01/09/25 02/18/25 Rx .COMPLEX #60 caps hydrochlorothiazide 12.5 mg tablet See Rx Instructions .Route 01/18/25 02/18/25 Rx .COMPLEX #90 tabs losartan 100 mg tablet See Rx Instructions .Route 0 01/18/25 02/18/25 Rx .COMPLEX #90 tabs New Prescriptions to Start Prescriptions: Allergies Allergy/AdvReac Type Severity Reaction Status Date / Time amoxicillin (From Augmentin) Allergy Mild Verified 12/12/24 16:08 clavulanic acid (From Allergy Mild Verified 12/12/24 16:08 Augmentin) Assessment and Plan *Assessment and plan (1) Sacroiliitis: Status: Acute Category: Medical Code(s): M46.1 - Sacroiliitis, not elsewhere classified Plan Patient continues to do well following his SI injection and does not require any additional interventions at this time. He will return to clinic in 3 months. I did counseling department chair him if he ends up needing additional refills on his muscle relaxer to call our office and I will send an additional prescription. Patient agrees with this plan of care. Patient has been instructed to contact the clinic with any concerns before the next appointment. Dr. Lozada has reviewed this note and agrees with this plan of care. This note was dictated using voice recognition software and make contain errors or omissions. All injections are used with Lidocaine, Bupivacaine and dexamethasone. Occasionally urine drug screen is needed to verify patient's compliance with our office pain contract. This is ordered based off specific treatments related to chronic pain with the potential to abuse certain medications.
== END 2025-02-18 23:59 | disposition home or self-care (01) ==
PROVIDERS: PCP Internal Medicine; Visit Provider Nurse Practitioner Family
DX: M46.1 Sacroiliitis, not elsewhere classified (principal)
CPT/HCPCS: 99212; G0463

== ENCOUNTER 2025-04-22 11:02 | Emergency (ER) | payer BC, SELFPAY ==
--- OUTSIDE RECORDS SUMMARY | 2025-03-27 10:20 | XMS_ITS | Encounter Summary ---
Author Organization [facility] Address [address] [place] [address] Care Team Providers Care Chemical Plant Technical Director Name Role Phone James Gaytan MD Primary Care Provider [phone] Reason for Visit * Reason Comments Follow-up 8 Month Follow Up - 1 Year S/P Left total knee arthroplasty DOS 03/27/24 Encounter Details Date Type Department Care Team (Late st Contact Info) Description 03/27/2025 10:20 AM EDT Office Visit [facility] [address] [phone] Rachid Jalloh MD [address] [place] [address] S/P TKR (total knee replacement), left (Primary Dx) Social History Tobacco Use Types Packs/Day Years Used Date Smoking Tobacco: Former Cigarettes 0.5 1 0 01/26/1983 - 11/25/1983 Passive Smoke Exposure: Never Smokeless Tobacco: Former Tobacco Cessation:Counseling Given: Not Answered Comments:Short lived Alcohol Use Standard Drinks/Week Comments Not Currently 0 (1 standard drink = 0.6 oz pur e alcohol) Social/ almost never AUDIT-C Answer Date Recorded Frequency of Alcohol Consumption Never 10/09/2018 Average Number of Drinks Not on file 019 Frequency of Binge Drinking Not on file 09/20 Abuse Screen Answer Date Recorded Feels Unsafe at Home or Work/School no 01/25/2023 Feels Threatened by Someone no 05/2023 Does Anyone Try to Keep You From Having Contact with Others or Doing Things Outside Your Home? no 01/25/2023 Physical Signs of Abuse Present no 01/25/2023 Housing Stability Answer Date Recorded Current Living Arrangements home 05/2023 Potentially Unsafe Housing Conditions Not on trent[place] e 01/25/2023 Disabilities Answer Date Recorded Difficulty Concentrating, Remembering or Making Decisions no 01/25/2023 Difficulty Managing Errands Independently no 01/25/2023 Education Answer Date Recorded Help with school or training? Not on file Preferred Language Tuvaluan 01/18/2023 Sex and Gender Information Value Date Recorded Sex Assigned at Male 03/20/2025 9:59 AM EDT Legal Sex Male 10:32 AM EDT Gender Identity Not on file Sexual Orientation Straight 03/20/2025 9: 59 AM EDT documented as of this encounter Last Filed Vital Signs Vital Sign Reading Time Taken Comments Blood Pressure 178/82 03/27/2025 10:07 AM EDT Pulse - - Temperature - - Respiratory Rate - - Oxygen Saturation - - Inhaled Oxygen Concentration - - Weight 119 kg (262 lb 1.6 oz) 03/27/2025 10:07 A M EDT Height 181.6 cm (5' 11.5 ) 03/27/2025 10:07 AM E DT Body Mass Index 36.05 03/27/2025 10:07 AM EDT documented in this encounter Progress Notes * Rachid Jalloh MD - 03/27/2025 10:20 AM EDT Images from the original note were not included. [facility] [place] Subjective CC: Follow-up (8 Month Follow Up - 1 Year S/P Left total knee arthroplasty DOS 03/27/24) BYRON Brown is a 60 y.o. male. He is here for annual follow-up. He is doing well. No new complaints. Overall, patient's symptoms are improved ROS: Constiutional:Pt denies fever, chills, nausea, or vomiting. MSK:as above Objective Past Medical History Past Medical History: Diagnosis Date Asthma Elevated cholesterol GERD (gastroesophageal reflux disease) H/O blood clots about 10years ago in right calf Hypertension Knee swelling Sleep apnea USES CPAP Social History Socioeconomic History Marital status: Tobacco Use Smoking status: Former Current packs/day: 0.00 Average packs/day: 0.5 packs/day for 1 year (0.5 ttl pk-yrs) Types: Cigarettes Start date: 01/26/1983 Quit date: 11/25/1983 Years since quittin.3 Passive exposure: Never Smokeless tobacco: Former Tobacco comments: Short lived Vaping Use Vaping status: Never Used Substance and Sexual Activity Alcohol use: Not Currently Comment: Social/ almost never Drug use: Never Sexual activity: Yes Partners: Female control/protection: Vasectomy Physical Exam BP 178/82 (BP Location: Left arm, Patient Position: Sitting) Ht 181.6 cm (71.5 ) Wt 119 kg (262lb 1.6 oz) BMI 36.05 kg/m?? Body mass index is 36.05 kg/m??. Patient is well nourished and well developed. Ortho Exam Left knee is range of motion 0 to 122 degrees. Incision looks good. Imaging/Labs/EMG Reviewed and Interpreted: Imaging Results (Last 24 Hours) Procedure Component Value Units Date/Time XR Knee 3+ View With [place] Left [[id number]] Resulted: 03/27/25 1029 Updated: 03/27/25 102 Narrative: TKA X-Ray Indication: status-post TKA AP, Lateral, and [place] views of Left knee Findings: No signs of fracture No signs of loosening No change compared to prior study Components are well aligned Assessment Assessment: 1. S/P TKR (total knee replacement), left Plan: Recommend over the counter anti-inflammatories for pain and/or swelling He is doing very well. He will follow-up in 1 year. Rachid Jalloh MD 03/27/25 10:35 EDT Dictated Utilizing [employer] Dictation. documented in this encounter Plan of Treatment Not on file documented as of this encounter Procedures Procedure Name Priority Date/Time Associated Diagnosis Comments XR KNEE 3+ VW W [place] LEFT Routine 03/27/2025 10:27 AM EDT S/P TKR (total knee replacement), left documented in this encounter Results * XR Knee 3+ View With [place] Left (03/27/2025 10:27 AM EDT) Anatomical Region Laterality Modality Lower Extremities, Knee Left Radiogra phic Imaging Narrative 03/27/2025 10:29 AM EDT TKA X-Ray Indication: status-post TKA AP, Lateral, and [place] views of Left knee Findings: No signs of fracture No signs of loosening No change compared to prior study Components are well aligned us Rachid Jalloh MD IMG DIAGNOSTIC IMAGING ORDER GHISLAINE Final Result documented in this encounter Visit Diagnoses Diagnosis S/P TKR (total knee replacement), left- Primary documented in this encounter Care Teams Chemical Plant Technical Director Relationship Specialty Start Date End Date James Gaytan MD [facility] [address] [place] [address] PCP - General Internal Medicine 10/09/18 documented as of this encounter
--- OUTSIDE RECORDS SUMMARY | 2025-03-27 10:30 | XMS_ITS | Encounter Summary ---
[facility] Address [address] [place] [address] Care Team Providers Care Dye Penetrant Testing Technician Name Role Phone James Gaytan MD Primary Care Provider [phone] Encounter Details Date Type Department Care Team (Late st Contact Info) Description 03/27/2025 10:30 AM EDT Ancillary Procedure [facility] [address] [place] [phone] Social History Tobacco Use Types Packs/Day Years Used Date Smoking Tobacco: Former Cigarettes 0.5 1 0 01/26/1983 - 11/25/1983 Passive Smoke Exposure: Never Smokeless Tobacco: Former Comments:Short lived Alcohol Use Standard Drinks/Week Comments [...] or training? Not on file Preferred Language Mohawk 01/18/2023 Sex and Gender Information Value Date Recorded Sex Assigned at Male 03/20/2025 9:59 AM EDT Legal Sex Male 10:32 AM EDT Gender Identity Not on file Sexual Orientation Straight 03/20/2025 9: 59 AM EDT documented as of this encounter Plan of Treatment Not on file documented as of this encounter Procedures Procedure Name Priority Date/Time Associated Diagnosis Comments XR KNEE 3+ VW W [place] LEFT Routine 03/27/2025 10:27 AM EDT S/P TKR (total knee replacement), left documented in this encounter Results * XR Knee 3+ View With [place] Left (03/27/2025 10:27 AM EDT) Anatomical Region Laterality Modality Lower Extremities, Knee Left Radiogra phic Imaging Narrative 03/27/2025 10:29 AM EDT TKA X-Ray Indication: status-post TKA AP, Lateral, and [place] views of Left knee Findings: No signs of fracture No signs of loosening No change compared to prior study Components are well aligned us Rachid Jalloh MD IMG DIAGNOSTIC IMAGING ORDER GHISLAINE Final Result documented in this encounter Visit Diagnoses Not on filedocumented in this encounter Care Teams Dye Penetrant Testing Technician Relationship Specialty Start Date End Date James Gaytan MD [address] [facility] [address] [place] [id number] PCP - General Internal Medicine 10/09/18 documented as of this encounter
[2025-04-22] VITALS (10 sets, daily range): BP systolic 143–193; BP diastolic 80–106; PULSE 68–89; RESP 17–18; TEMP 36.9; O2SAT 98–100; BMI 34.5
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
--- OUTSIDE RECORDS SUMMARY | 2025-04-22 11:19 | XMS_ITS | Clinical Summary ---
Author Organization [facility] Address [address] [place] [phone] Phone [email or web address] Care Team Providers Care Day Care Provider Name Role Phone Unavailable Primary Care Provider Unavailabl e Allergies Active Allergy Reactions Criticality Noted Date Comments Amoxicillin-Pot Clavulanate GI intolerance 09/20 Medications Eliquis 2.5 MG tablet Take 2.5 mg by mouth 2 (two) times a day. 1 Active fenofibrate (TRIGLIDE) 160 MG tablet Take 160 mg by mouth 1 (one) time each day. 2 Active fluticasone (Flonase Sensimist) 27.5 MCG/SPRAY nasal spray Administer 2 sprays into each nostril daily. Active lisinopril-hydr oCHLOROthiazide (ZESTORETIC) 20-12.5 MG per tablet Take 1 tablet by mouth daily. 1 Active omeprazole (PriLOSEC) [address] capsule Take 40 mg by mouth 1 (one) time each day. 2 Active Active Problems Problem Noted Date Diagnosed Date Laboratory exam ordered as p art of routine general medical examination 05/25/2011 Overview (02/15/2018): Rash and other nonspecific skin eruption 010 Overview (02/15/2018): Routine general medical exam ination at a health care facility 04/23/2009 Overview (02/15/2018): Acute sinusitis 02/06/2009 Overview (02/15/2018): Other specified local infect ion of skin or subcutaneous tissue 08/09/2008 Overview (02/15/2018): Examination for medicolegal reason 03/21/2008 Overview (02/15/2018): Health examination of defined subpopulation 01/18 Overview (02/15/2018): Other examination of ears and hearing 01/25/2008 Overview (02/15/2018): Acute upper respiratory infection 11/07/2007 Overview (02/15/2018): Immunizations Immunization Administration Dates Next Due Covid-19 (Moderna Bonner, 12yrs+) (CVX-[id number]) 2020,11/19/2020 Family History Medical History Relation Name Comments Prostate cancer Brother Colon cancer Father prostate cancer , hypertension Atrial fibrillation Mother Prostate cancer Other Uncle Prostate cancer Paternal Grandmother Relation Name Status Comments Brother Alive Father Mother Alive Other Uncle Paternal Grandmother Social History Tobacco Use Types Packs/Day Years Used Date Smoking Tobacco: Never Smokeless Tobacco: Never Tobacco Cessation:Counseling Given: No Alcohol Use Standard Drinks/Week Comments Yes 2 (1 standard drink = 0.6 oz pur e alcohol) social drinker Intimate Partner Violence Answer Date R ecorded Insults You Not on file 12/31/2020 Threatens You Not on file 12/31/2020 Screams at You Not on file 12/31/2020 Physically Hurt Not on file 12/31/2020 Intimate Partner Violence Score Not on file 12/31/2020 Alcohol Use Answer Date Recorded Alcohol Use Status Yes 10/09/2021 Stress Answer Date Recorded Stress in your Life Not on file 07/23/2024 Dealing with Stress 3 07/23/2024 Sex and Gender Information Value Date Recorded Sex Assigned at Not on file Legal Sex Male 9:48 AM CDT Gender Identity Not on file Sexual Orientation Not on file Last Filed Vital Signs Vital Sign Reading Time Taken Comments Blood Pressure 131/83 12/06/2019 1:57 PM EDT Pulse 80 12/06/2019 1:57 PM EDT Temperature 36.7 C (98 F) 10/11/2021 6:07 PM EST Respiratory Rate - - Oxygen Saturation - - Inhaled Oxygen Concentration - - Weight 98.9 kg (218 lb) 12/06/2019 1:57 PM EDT Height 182.9 cm (6') 12/06/2019 1:57 PM EDT Body Mass Index 29.57 12/06/2019 1:57 PM EDT Plan of Treatment Health Maintenance Due Date Last Done Comments CT Colonography 1964 Colonoscopy 1964 Colorectal Cancer Screening Combo 1964 DNA Cologuard 1964 Dental Cleaning/Exam 1964 FIT or FOBT Test 1964 HIV Screening 1964 Hepatitis C Screening 1964 Sigmoidoscopy 1964 Annual Preventive Exam 02/19/1982 Hep B Infection Screening - Triple Screen 02/19/1982 Tetanus Diphtheria and Pertussis Immunization (1 - Tdap) 02/19/1983 Zoster Immunization (1 of 2) 02/19/2014 Covid-19 Immunization (3 - season) 2024 12/17/2020, 11/19/2020 Influenza Immunization (#1) 2025 HIB Immunization Aged Out No longer e ligible based on patient's age to complete this topic HPV Immunization Aged Out No longer e ligible based on patient's age to complete this topic Hepatitis A Immunization Aged Out No longer eligible based on patient's age to complete this topic Hepatitis B Immunization Aged Out No longer eligible based on patient's age to complete this topic Pneumococcal: Ped (0 to 5 Yr s) and At-Risk Member (6 to 64 Yrs) Aged Out No longer eligible b ased on patient's age to complete this topic Polio Immunization Aged Out No longer eligible based on patient's age to complete this topic Insurance OPT OUT NO COPAY NB
--- OUTSIDE RECORDS SUMMARY | 2025-04-22 11:19 | XMS_ITS | Clinical Summary ---
Author Organization [facility] Address [address] [place] [address] Care Team Providers Care Health Education Director Name Role Phone James Gaytan MD Primary Care Provider [phone] Allergies Active Allergy Reactions Criticality Noted Date Comments Amoxicillin-Pot Clavulanate GI Intolerance 09/20 Chlorhexidine Rash Low 09/09/2023 Medications ELIQUIS 2.5 MG tablet tablet Take 1 tablet by mouth 2 (Two) Times a Day. PT TO STOP TAKING (2) DAYS PRIOR TO PROCEDURE PER DR. OLIVARES AND DR. GAYTAN. 09/15/20 18 Active fenofibrate 160 MG tablet Take 1 tablet by mouth Daily. 08/13/20 18 Active omeprazole (priLOSEC) 40 MG capsule Take 1 capsule by mouth Daily. 09/06/20 18 Active levocetirizine (XYZAL) 5 MG tablet levocetirizine 5 mg tablet TAKE 1 TABLET BY MOUTH ONCE DAILY IN THE EVENING FOR 90 DAYS Active Hydrocortisone , Perianal, (ANUSOL-HC) 2.5 % rectal cream Procto-Med HC 2.5 % topical cream perineal applicator APPLY CREAM RECTALLY TWICE DAILY Active albuterol sulfate HFA 108 (90 Base) MCG/ACT inhaler INHALE 2 PUFFS BY MOUTH 4 TIMES DAILY NEEDED 01/11/20 23 Active montelukast (SINGULAIR) 10 MG tablet Take 1 tablet by mouth Every Evening. 12/14/19 23 Active nystatin-triam cinolone (MYCOLOG II) 812162-4.1 UNIT/GM-% cream APPLY CREAM TO RASH THREE TIMES DAILY NEEDED 11/02/19 Active multivitamin with minerals tablet tablet Take 1 tablet by mouth Daily. Active Zinc 50 MG tablet Take 1 tablet by mouth Daily. Active Cholecalcifero l (Vitamin D3) 25 MCG (1000 UT) capsule Take 1 capsule by mouth Daily. Active losartan (COZAAR) 100 MG tablet Take 1 tablet by mouth Daily. 05/13/20 23 Active meloxicam (MOBIC) 15 MG tablet 1 PO Daily with food. 90 tablet 2 04/25/20 24 Active hydroCHLOROthi azide 12.5 MG tablet Take 1 tablet by mouth Daily. 04/27/20 24 Active Baclofen (LIORESAL) 5 MG tablet Take 1 tablet by mouth 3 times a day. 12/20/19 25 Active Trelegy Ellipta 100-62.5-25 MCG/ACT inhaler Inhale 1 puff Daily. 01/18/20 23 025 Discontin ued(*Ther apy completed ) ondansetron (Zofran) 4 MG tablet Take 1 tablet by mouth Every 8 (Eight) Hours As Needed for Nausea. 10 tablet 1 4 9:38 AM EDT 03/27/20 24 025 Discontin ued(*Ther apy completed ) gabapentin (NEURONTIN) 300 MG capsule Take 2 capsules by mouth every night at bedtime. 05/31/20 24 025 Discontin ued(*Ther apy completed ) oxyCODONE (ROXICODONE) 5 MG immediate release tablet TAKE 1 TO 2 TABLETS BY MOUTH AT BEDTIME NIGHTLY NEEDED FOR PAIN 06/06/20 24 025 Discontin ued(*Ther apy completed ) zolpidem (AMBIEN) 5 MG tablet TAKE 1 TABLET BY MOUTH EVERY DAY AT BEDTIME NIGHTLY NEEDED INSOMNIA MAY REPEAT ONCE IF NO RESPONSE IN 30-60 MINUTES 06/18/20 24 025 Discontin ued(*Ther apy completed ) Active Problems No known active problems Encounters Date Type Department Care Team Description 03/27/2025 10:30 AM EDT Ancillary Procedure [facility] [address] [facility] [address] [place] [address] 03/27/2025 10:20 AM EDT Office Visit [facility] [address] [facility] [address] [place] [address] Rachid Jalloh MD S/P TKR (total knee replacement), left (Primary Dx) 03/27/2025 Travel from Last 3 Months Immunizations Immunization Administration Dates Next Due COVID-19 (MODERNA) 1st,2nd,3 rd Dose Monovalent 01/04/2022,12/17/2020,11/19/2020 COVID-19 (MODERNA) BIVALENT 12+YRS 06/25/2022 Family History Medical History Relation Name Comments Cancer Father Alok Hypertension Father Alok Diabetes Mother February Stroke Mother February Relation Name Status Comments Father Alok Mother February Social History Tobacco Use Types Packs/Day Years [...] or training? Not on file Preferred Language Tunisian 01/18/2023 Sex and Gender Information Value Date Recorded Sex Assigned at Male 03/20/2025 9:59 AM EDT Legal Sex Male 10:32 AM EDT Gender Identity Not on file Sexual Orientation Straight 03/20/2025 9: 59 AM EDT Last Filed Vital Signs Vital Sign Reading Time Taken Comments Blood Pressure 178/82 03/27/2025 10:07 AM EDT Pulse 68 01/25/2023 12:30 PM EDT Temperature 36.2 C (97.1 F) 04/09/2024 10:52 AM EDT Respiratory Rate 20 01/25/2023 11:45 AM EDT Oxygen Saturation 95% 01/25/2023 12:30 PM EDT Inhaled Oxygen Concentration - - Weight 119 kg (262 lb 1.6 oz) 03/27/2025 10:07 A M EDT Height 181.6 cm (5' 11.5 ) 03/27/2025 10:07 AM E DT Body Mass Index 36.05 03/27/2025 10:07 AM EDT Plan of Treatment Health Maintenance Due Date Last Done Comments COLOGUARD 02/19/2009 COLON CANCER SCREENING 5 WILL Anderson SIGMOIDOSCOPY 02/19/2009 COLONOSCOPY 02/19/2009 COLORECTAL CANCER SCREENING 02/19/2009 CT COLONOGRAPHY 02/19/2009 FECAL OCCULT BLOOD TEST 02/19/2009 FIT Testing (1 year) 02/19/2009 TDAP/TD VACCINES (2 - Tdap) 08/08/2018 08/08/2008 ANNUAL PHYSICAL 10/09/2018 HEPATITIS C SCREENING 10/09/2018 COVID-19 Vaccine (2023-2 5 season) 2024 06/25/2022, 01/04/2022, 07/11/2021, Additional history exists INFLUENZA VACCINE 06/19/2025 07/16/2024, 06/16/2021 ZOSTER VACCINE Completed 07/11/2023, 05/09/2023 Pneumococcal Vaccine 50+ Completed 10/05/2024 Medical Devices Implanted Type Area Forensic Toxicologist Device Identifier Shelf Expiration Date Model / Serial / Lot Mesh Onflex W/Pckt Rob 8.6x14.2cm - [id number] Implanted:Qty: 1 on 01/25/2023 by Ashutosh Olivares MD at [facility] Implant Right: Groin DAVOL ([employer]) 05/16/2025 [id number] / / [id number] Procedures Procedure Name Priority Date/Time Associated Diagnosis Comments XR KNEE 3+ VW W SUNRISE LEFT Routine 03/27/2025 10:27 AM EDT S/P TKR (total knee replacement), left from Last 3 Months Results * XR Knee 3+ View With [place] Left (03/27/2025 10:27 AM EDT) Anatomical Region Laterality Modality Lower Extremities, Knee Left Radiogra phic Imaging Narrative 03/27/2025 10:29 AM EDT TKA X-Ray Indication: status-post TKA AP, Lateral, and [place] views of Left knee Findings: No signs of fracture No signs of loosening No change compared to prior study Components are well aligned Rachid Jalloh MD IMG DIAGNOSTIC IMAGING ORDER GHISLAINE Final Result from Last 3 Months Insurance [id number] [facility] [address] [facility] [place] [id number] [facility] PPO Care Teams Health Education Director Relationship Specialty Start Date End Date James Gaytan MD [address] [facility] [address] [facility] [place] [id number] PCP - General Internal Medicine 10/09/18
--- OUTSIDE RECORDS SUMMARY | 2025-04-22 11:19 | XMS_ITS | Clinical Summary ---
Author Organization [facility] [employer] ([place], [place], [place], [place]) Address [address] [place] [address] Care Team Providers Care Mortgage Accounting Clerk Name Role Phone Unavailable Primary Care Provider Unavailabl e Social History Tobacco Use Types Packs/Day Years Used Date Smoking Tobacco: Never Assessed Sex and Gender Information Value Date Recorded Sex Assigned at Not on file Legal Sex Male 6:53 PM CDT Gender Identity Not on file Sexual Orientation Not on file Plan of Treatment Upcoming Encounters Date Type Department Care Team (Late st Contact Info) Description 07/30/2025 10:30 AM EST Office Visit [facility] Urology - [address] [place] [address] Rachid Tuttle MD [address] [place] [address] [address] [place] [address] Health Maintenance Due Date Last Done Comments CT Colonography 1964 Colonoscopy 1964 Colorectal Cancer Screening 1964 FOBT/FIT 1964 Fit-DNA (Cologuard) 1964 Sigmoidoscopy 1964 Depression Screening (12+) 1976 Tobacco Cessation Counseling and Screening (12+) 1976 Pneumococcal 50+ years (1 of 1 - PCV) 02/19/2014 DTAP/TDAP/TD VACCINES (2 - T d or Tdap) 08/08/2018 08/08/2008 COVID-19 VACCINE (2023-2 5 season) 2024 01/04/2022, 07/11/2021, 12/17/2020, Additional history exists Influenza Vaccine (#1) 2025 Respiratory Syncytial Virus (RSV) Adult or (1 - 1-dose 75+ series) 02/19/2039 Shingles Vaccine (Zoster) Completed 07/11/2023, Insurance [id number] [place] [id number] BLUE CROSS/BLUE SHIELD
--- OUTSIDE RECORDS SUMMARY | 2025-04-22 11:19 | XMS_ITS | Referral Summary ---
Author Organization [employer] ([place], [place], [place], [place]) Address [address] [place] [address] Care Team Providers Care Brush Worker Name Role Phone Unavailable Primary Care Provider [...] Description 07/30/2025 10:30 AM EST Office Visit [facility] Urology - [facility] [address] [facility] [address] [place] [address] Rachid Tuttle MD [address] [place] [address] [address] [place] [address] Insurance [id number] [place] [id number] [place] [phone] BLUE CROSS/BLUE SHIELD
--- OUTSIDE RECORDS SUMMARY | 2025-04-22 11:19 | XMS_ITS | Encounter Summary ---
[facility] Organization [facility] Address [address] [place] [address] Care Team Providers Care Senior Nuclear Medicine Technologist Name Role Phone James Gaytan MD Primary Care Provider Encounter Details Date Type Department Care Team (Latest Contact Info) Description 03/27/2025 Travel Social History Tobacco Use Types Packs/Day Years [...] or training? Not on file Preferred Language New Zealander 01/18/2023 Sex and Gender Information Value Date Recorded Sex Assigned at Male 03/20/2025 9:59 AM EDT Legal Sex Male 10:32 AM EDT Gender Identity Not on file Sexual Orientation Straight 03/20/2025 9: 59 AM EDT documented as of this encounter Plan of Treatment Not on file documented as of this encounter Visit Diagnoses Not on filedocumented in this encounter Care Teams Senior Nuclear Medicine Technologist Relationship Specialty Start Date End Date James Gaytan MD [address] [place] [address] [address] [address] PCP - General Internal Medicine 10/09/18 documented as of this encounter
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
[2025-04-22] MEDS: ACETAMINOPHEN 500MG TAB 1000 MG PO (11:34)
--- NOTE | 2025-04-22 11:35 | PC.NURSE ---
pt to rad
--- NOTE | 2025-04-22 13:22 | XR_ITS ---
FINAL REPORT CLINICAL HISTORY: Postreduction of great toe COMPARISON: 2 hours prior FINDINGS: Two views of the right foot were obtained. There has been successful interval reduction of the 1st MTP joint. Multiple ossific densities are present at the lateral margin of the 1st MTP joint, probably related to trauma but age indeterminate. IMPRESSION: Interval reduction 1st MTP joint. Reviewed, Interpreted and Dictated by Ignacio Felipe MD Transcribed by Alecia Hutchinson Authenticated and [facility]
[2025-04-22] MEDS: IBUPROFEN 600 MG TABLET PO (14:12)
== END 2025-04-22 14:24 | disposition home or self-care (01) ==
PROVIDERS: Emergency Provider Student in an Organized Health Care Education/Training Program; PCP Internal Medicine
DX: S93.121A Dislocation of metatarsophalangeal joint of right great toe, initial encounter (principal); M79.671 Pain in right foot; M79.642 Pain in left hand; I10 Essential (primary) hypertension; E78.5 Hyperlipidemia, unspecified; V94.0XXA Hitting object or bottom of body of water due to fall from watercraft, initial encounter
CPT/HCPCS: 28630; 70450; 73130; 73610; 73620; 73630; 99284